=== PATIENT | female | born 1975 | race Caucasian/White ===

== ENCOUNTER 2019-06-22 00:41 | Emergency (ER) | payer SELFPAY ==
[~2019-06-22] VITALS: Ht 165.1 cm; Wt 100.0 kg
[2019-06-22 00:58] VITALS: TEMP 98.2
[2019-06-22 01:31] LABS: BASO # 0.1 (0.0-0.2); BASO % 0.7 % (0.0-2.0); EOS # 0.4 (0.0-0.7); EOS % 3.2 % (0-4.0); GRAN # 6.8 (1.4-6.5); GRAN % 55.5 % (42.2-75.2); HEMATOCRIT 40.8 % (37.0-47.0); HEMOGLOBIN 13.1 g/dl (12.5-16.0); LYMPH % 32.4 % (20.0-51.0); MEAN CELL VOLUME 86 fl (80.0-100.0); MEAN CORPUSCULAR HEMOGLOBIN 28 pg (27.0-31.0); MEAN CORPUSCULAR HGB CONC 32 g/dl (33.0-37.0); MEAN PLATELET VOLUME 9.5 fl (7.4-10.4); PLATELET COUNT 409 K/mm3 (130-400); RED BLOOD COUNT 4.73 M/mm3 (4.10-5.30); REDCELL DISTRIBUTION WIDTH-CV 13.6 % (11.5-14.5)
[2019-06-22 01:41] LABS: POTASSIUM 3.4 mmol/L (3.4-5.0)
[2019-06-22 01:44] LABS: ALANINE AMINOTRANSFERASE 21 U/L (9-52); ALBUMIN 4.1 gm/dL (3.5-5.0); ALKALINE PHOSPHATASE 122 U/L (50-136); ANION GAP 11 mmol/L (7-16); AST,SGOT 22 U/L (15-37); BILIRUBIN,TOTAL 0.3 mg/dL (0.0-1.0); BLOOD UREA NITROGEN 11 mg/dL (7-17); CALCIUM 9.1 mg/dL (8.4-10.2); CARBON DIOXIDE 21 mmol/L (22-30); CHLORIDE 109 mmol/L (98-107); CREATININE, serum 0.93 (0.52-1.25); GLUCOSE 109 mg/dL (74-106); LIPASE 78 U/L (23-300); SODIUM 141 mmol/L (137-145); TOTAL PROTEIN 7.6 gm/dL (6.4-8.2)
[2019-06-22 01:50] LABS: C-REACTIVE PROTEIN < 0.5 mg/dL (0.0-0.9)
[2019-06-22 03:47] LABS: COLLECTION METHOD CLEAN CATCH
[2019-06-22 04:08] LABS: MUCOUS Present /lpf; PH 7 (5-8); SQUAMOUS EPITHELIAL 0-2 /hpf; URINE APPEARANCE Clear; URINE BACTERIA None Seen /hpf; URINE BILIRUBIN Negative (NEGATIVE); URINE BLOOD Negative (NEGATIVE); URINE COLOR Straw; URINE GLUCOSE Negative (NEGATIVE); URINE KETONE Negative (NEGATIVE); URINE LEUKOCYTE ESTERASE Negative (NEGATIVE); URINE NITRATE Negative (NEGATIVE); URINE PROTEIN(semi-quant) Negative (NEGATIVE); URINE RBC 0-2 /hpf; URINE UROBILINOGEN Negative (NEGATIVE)
[2019-06-22] MEDS ORDERED: TENORMIN 2525 MG/TAB PO (04:54)
[2019-06-22 05:10] VITALS: BP 159/100; PULSE 83
== END 2019-06-22 05:20 | disposition home or self-care (01) ==
LOC: COL.ER 00:41
PROVIDERS: Emergency Medicine
DX: R10.13 Epigastric pain (principal); I10 Essential (primary) hypertension
CPT/HCPCS: C9113; J7030; Q9967

== ENCOUNTER 2022-07-31 16:49 | Emergency (ER) | payer OTHER ==
[~2022-07-31] VITALS: Ht 167.6 cm; Wt 106.8 kg
[~2022-07-31 16:49] MED LIST: TENORMIN 2525 MG/TAB PO
[2022-07-31] MEDS ORDERED: NAPROSYN 2250 MG/TAB PO (17:53)
[2022-07-31] MEDS ORDERED: ZANAFLEX 4MG TAB4 MG PO (17:53)
[2022-07-31 18:20] VITALS: BP 105/74; PULSE 78; TEMP 98.7
== END 2022-07-31 18:20 | disposition home or self-care (01) ==
LOC: COL.ER 16:49
DX: M62.830 Muscle spasm of back (principal)
CPT/HCPCS: J1200; J1885